=== PATIENT | female | born 1990 | race African-American/Black ===

== ENCOUNTER 2016-10-17 18:18 | Emergency (ER) | payer MEDICARE, MEDICAID | END 2016-10-17 20:30 | disposition home or self-care (01) | LOC: D.ER 18:18 | DX: J06.9 Acute upper respiratory infection, unspecified (principal); J30.9 Allergic rhinitis, unspecified; F17.200 Nicotine dependence, unspecified, uncomplicated ==

== ENCOUNTER 2017-03-18 01:50 | Emergency (ER) | payer MEDICARE, MEDICAID | END 2017-03-18 02:46 | disposition home or self-care (01) | LOC: D.ER 01:50 | DX: K59.00 Constipation, unspecified (principal) ==

== ENCOUNTER 2017-06-21 17:34 | Emergency (ER) | payer MEDICARE ==
[2017-06-21 20:41] LABS: HCG URINE NEGATIVE (NEGATIVE)
[2017-06-21 20:42] LABS: APPEARANCE CLEAR (CLEAR); BILIRUBIN NEGATIVE (NEGATIVE); COLOR YELLOW (YELLOW); GLUCOSE NEGATIVE (NEGATIVE); KETONE NEGATIVE (NEGATIVE); NITRITE NEGATIVE (NEGATIVE); PROTEIN NEGATIVE (NEGATIVE); SPECIFIC GRAVITY 1.015 (1.005-1.020); UROBILINOGEN NORMAL (NORMAL)
[2017-06-21 20:43] LABS: BASOPHILS 0.2 % (0-2); EOSINOPHILS 0.5 % (0-7); HEMATOCRIT 39.6 % (36.0-48.0); HEMOGLOBIN 13.3 g/dL (12-16); IMMATURE GRANULOCYTES 0.3 % (0-5); LYMPHOCYTES 43.6 % (15-50); MCH 29.3 pg (26.0-34.0); MCHC 33.6 g/dL (31.0-37.0); MCV 87.2 fL (80.0-100.0); MEAN PLATELET VOLUME 10.3 fL (7.4-10.4); NEUTROPHILS 49.4 % (40-80); PLATELET COUNT 211 10x3/uL (130-400); RBC 4.54 10x6/uL (4.00-5.40); RDW 12.5 % (11.5-14.5); WBC 5.8 10x3/uL (4.8-10.8)
[2017-06-21 20:43] LABS: BACTERIA MANY /hpf (NONE SEEN); EPITHELIAL CELLS 0-5 /hpf (0-5); RED CELLS - URINE 0-5 /hpf (0-5)
[2017-06-21 21:01] LABS: ALBUMIN 3.7 g/dL (3.4-5.0); ALKALINE PHOSPHATASE 58 U/L (46-116); ALT (SGPT) 20 U/L (10-68); AMYLASE - SERUM 59 U/L (25-115); CALC OSMOLALITY 281 mosm/kg (275-300); CALCIUM 8.3 mg/dL (8.5-10.1); CARBON DIOXIDE 26.5 mmol/L (21.0-32.0); CHLORIDE - SERUM 106 mmol/L (98-107); CREATININE - SERUM 0.6 mg/dL (0.6-1.3); GLUCOSE 87 mg/dL (74-106); LIPASE 104 U/L (73-393); POTASSIUM - SERUM 3.7 mmol/L (3.5-5.1); PROTEIN - SERUM 7.7 g/dL (6.4-8.2); SODIUM 143 mmol/L (136-145); UREA NITROGEN 7 mg/dL (7-18); eGFR NON AFRICAN AMERICAN > 90 mL/min (90-120)
== END 2017-06-21 21:41 | disposition home or self-care (01) ==
LOC: D.ER 17:34
PROVIDERS: Nurse Practitioner Family
DX: N34.2 Other urethritis (principal)